=== PATIENT | female | born 1970 | race Caucasian/White ===

== ENCOUNTER → 2016-10-26 | Outpatient (CLI) | payer BC ==
--- NOTE | 2016-10-29 09:14 | RAD ---
EXAM: MAMMO SHARI SCREENING BILATERAL. HISTORY: Screening. COMPARISON: 04/12/2014. FINDINGS: 2-D and 3-D tomosynthesis mammograms were obtained of both breasts in the CC and MLO projections. Computer-aided detection (CAD) was utilized. The breast parenchyma is heterogeneously dense which could reduce sensitivity of mammography (tissue density C). No suspicious microcalcifications or architectural distortion is identified. Within the medial right breast, thought to be at 3:00, there is a small well-circumscribed mass estimated to measure 1 cm, located 6 cm from the nipple. This is not well-seen on previous study, but may be obscured by dense breast tissue. IMPRESSION: Small well-circumscribed mass in the medial right breast, at 3:00, 5 cm from nipple. Recommend ultrasound for further evaluation. BI-RADS CATEGORY: 0 INCOMPLETE: NEEDS ADDITIONAL IMAGING EVALUATION AND/OR PRIOR MAMMOGRAMS FOR COMPARISON. RECOMMENDED FOLLOW-UP: ADD ADDITIONAL IMAGING PQRS compliance statement: Patient information was entered into a reminder system with a target due date for the next mammogram. Mammography is a sensitive method for finding small breast cancers, but it does not detect them all and is not a substitute for careful clinical examination. A negative mammogram does not negate a clinically suspicious finding and should not result in delay in biopsying a clinically suspicious abnormality. "Our facility is accredited by the [employer] Mammography Program."
== END | disposition home or self-care (01) ==
LOC: MAMMO 09:21
PROVIDERS: ATTEND Physician Assistant
DX: Z12.31 Encounter for screening mammogram for malignant neoplasm of breast (principal)
CPT/HCPCS: 77063; G0202; 77067

== ENCOUNTER → 2016-11-07 | Outpatient (CLI) | payer BC ==
--- NOTE | 2016-11-07 16:29 | RAD ---
Right breast ultrasound, 11/07/2016: History: Right breast nodule Recent mammograms from 10/26/2016 demonstrated a small smooth nodule in the upper inner quadrant of the right breast. Careful sonographic evaluation of the right breast was performed from the 1 to the 3 o'clock locations. There is an oval-shaped 1 cm nodule at 1:00 approximately 6 cm from the nipple. The sonographic characteristics are compatible with a simple cyst. This appears to correspond to the mammographic abnormality. No other cystic or solid mass was evident in the upper outer quadrant of the right breast. IMPRESSION: Right breast cyst. Routine yearly mammographic follow-up is suggested. BI-RADS 2-benign findings
== END | disposition home or self-care (01) ==
LOC: US 14:47
PROVIDERS: ATTEND Nurse Practitioner Family
DX: N63 Unspecified lump in breast (principal); N60.01 Solitary cyst of right breast
CPT/HCPCS: 76641

== ENCOUNTER 2017-07-17 23:52 | Emergency (ER) | payer BC ==
[~2017-07-17] VITALS: Ht 160 cm; Wt 94.8 kg
[2017-07-17 23:53] VITALS: BP 132/79
[2017-07-18] MEDS ORDERED: ASPIRIN 81 MG TAB.CHEW PO ONE (00:30)
--- NOTE | 2017-07-18 00:46 | PHYS DOC ---
General Chief Complaint: Palpitations Stated Complaint: PALPITATIONS Time Seen by MD: 23:59 Source: patient Exam Limitations: no limitations Problems: History of Present Illness Initial Comments Patient is a 47-year-old female who comes to the ED complaining of palpitations. Patient states that she has history of palpitations and anxiety, follows with Dr. Madhu De Oliveira who put her on propranolol to control these symptoms. She states that for the past several weeks her symptoms have been worsening "it's like I'm not even on the propranolol anymore." She states that she has exacerbations of a feeling as if her heart is racing with shortness of breath, incidentally she says she's had 3 of those episodes since she's been here however her telemetry has remained normal sinus no tachyarrhythmias, heart rate in 60s. No actual chest pain no arm or neck symptoms no diaphoresis nausea or lightheadedness. No cough fever chills or myalgias patient has never seen a felt puller and has never had a Holter monitor. Her TSH is monitored by her primary care physician due to family history and she states that it has always been normal. She denies any leg swelling or history of coagulopathy. Further questioning reveals that she has had increased stressors in her life as her to college age kids have been home on break "for to long" she does deny suicidal or homicidal ideation. In addition to cardiac workup patient agrees to Ativan intravenously to evaluate efficacy. ED vital signs are normal Timing/Duration: intermittent (2 weeks) Severity: moderate Modifying Factors: improves with other Associated Symptoms: other Allergies: Coded Allergies: Sulfa (Sulfonamide Antibiotics) (Verified Allergy, Unknown, 07/18/17) metronidazole (Verified Allergy, Unknown, 07/18/17) prochlorperazine (Verified Allergy, Unknown, 07/18/17) Past Medical History Medical History: other (anxiety, palpitations) Surgical History: noncontributory Social History Smoker: non-smoker Alcohol: none Drugs: none Review of Systems Constitutional: denies chills, denies diaphoresis, denies fever, denies malaise Respiratory: denies cough, denies wheezing Cardiovascular: see HPI, denies chest pain, denies syncope Gastrointestinal: denies abdominal pain, denies diarrhea, denies nausea, denies vomiting Genitourinary: denies dysuria, denies frequency, denies hematuria Musculoskeletal: denies back pain, denies joint swelling, denies neck pain Psychiatric/Neurological: denies headache, denies numbness, denies paresthesia Hematologic/Lymphatic: denies blood clots, denies easy bleeding, denies easy bruising Physical Exam General Appearance: WD/WN, no apparent distress Ear, Nose, Throat: hearing grossly normal, normal ENT inspection Neck: non-tender, supple Respiratory: normal breath sounds, no respiratory distress Cardiovascular: normal peripheral pulses, regular rate, rhythm Gastrointestinal: non tender, soft Back: no CVA tenderness, no vertebral tenderness Extremities: normal range of motion, non-tender, normal inspection, no pedal edema, no calf tenderness Neurologic/Psychiatric: 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 Interpreted by me. Labs are reassuring I rechecked the patient, she states that the Ativan helped significantly and reducing the number of "palpitations" she felt as well as the severity. Her is at bedside he states that she did experience a few between 0101 and 0104. I reviewed the telemetry and found PVCs corresponding temporarily to the patient's symptoms. I discussed this with the patient, she is an [employer] at the [employer] and is very reassured. She is a healthy individual and she feels anxiety is a likely contributor to her PVCs. I did discuss inpatient treatment and evaluation and offered it to her which she declined. She did request a prescription for Valium to get her by until she was able to get in with her primary care doctor. Signs and symptoms to monitor as well as indications for urgent return to the department were discussed. I discussed [id number]-[id number] prescription medications. I discussed the addictive potential of benzodiazepines and the patient is aware that these are not a long-term solution. I discussed the need for close PCP follow-up to discuss possible Holter monitor and outpatient cardiology workup. Her questions were answered she expressed agreement and understanding of the treatment plan. Departure Time of Disposition: 02:42 Disposition: 01 HOME, SELF-CARE Diagnosis: PVCs, anxiety Condition: IMPROVED Patient Instructions: Anxiety and Panic Attacks, [id number], Palpitations, [id number]-Ghlc Additional Instructions: As discussed your symptoms correlated temporarily to PVCs on telemetry throughout your ED stay. Treatment with Ativan appeared to improve your symptoms and reduce the number and severity of the PVCs symptoms reported. Prescription: Xanax 0.25 mg quantity 6 Follow-up with your doctor tomorrow for recheck, to discuss possible Holter monitor and outpatient cardiology referral. Return to ED with new or changing symptoms. BEATRIZ CONSTANTINO DO Jul 18, 2017 00:46
--- NOTE | 2017-07-18 00:49 | EKG ---
[address] [address] Test Date: 2017-07-18 Test Time: 00:00:08 Pat Name: PEGGY GATES Department: Room: Gender: F Candy Dipper: MARIYA : 1970 Requested By: BEATRIZ CONSTANTINO Order Number: [id number] Reading MD: Jose F Pierre Measurements Intervals [place] Rate: 60 P: 0 TX: 152 QRS: 18 QRSD: 80 T: 20 QT: 386 QTc: 386 Interpretive Statements SINUS RHYTHM QRS(T) CONTOUR ABNORMALITY CONSIDER ANTEROSEPTAL MYOCARDIAL DAMAGE POSSIBLY ABNORMAL ECG Electronically Signed On 07-23-2017 16:20:09 AGILITY INSTRUCTOR by Jose F Pierre
[2017-07-18] MEDS ORDERED: LORazepam 2 MG/ML VIAL IV ONE (01:00)
[2017-07-18 01:25] LABS: BASO % 0 % (0-3); EOS # 0.1 x10^3/uL (0.0-0.7); EOS % 3 % (0-3); HEMATOCRIT 40.1 % (36.0-47.0); HEMOGLOBIN 13.5 g/dL (12.0-15.5); LYMPH # 1.8 x10^3/uL (1.0-4.8); LYMPH % 48 % (24-48); MEAN CORPUSCULAR HEMOGLOBIN 28 pg (25-35); MEAN CORPUSCULAR HGB CONC 34 g/dL (31-37); MEAN CORPUSCULAR VOLUME 83 fL (79-100); MONO # 0.3 x10^3/uL (0.0-1.1); MONO % 7 % (0-9); NEUT # 1.6 x10^3uL (1.8-7.7); NEUT % 42 % (31-73); PLATELET COUNT 165 x10^3/uL (140-400); RED BLOOD COUNT 4.82 x10^6/uL (3.50-5.40); RED CELL DISTRIBUTION WIDTH 13.3 % (11.5-14.5); WHITE BLOOD COUNT 3.8 x10^3/uL (4.0-11.0)
[2017-07-18 01:40] LABS: ALBUMIN/GLOBULIN RATIO 1.1 (1.0-1.7); CALCIUM 9.1 mg/dL (8.5-10.1); CREATININE 0.8 mg/dL (0.6-1.0); GFR 76.2; MAGNESIUM 1.9 mg/dL (1.8-2.4); POTASSIUM 3.8 mmol/L (3.5-5.1); TOTAL BILIRUBIN 0.2 mg/dL (0.2-1.0); TOTAL PROTEIN 7.7 g/dL (6.4-8.2)
[2017-07-18] MEDS ORDERED: ALPR0.254 PO (02:41)
--- NOTE | 2017-07-18 07:23 | RAD ---
Indication: Palpitations tonight. Technique: Upright portable chest radiograph was obtained. Comparison is from July 16, 2011. Findings: The lungs are clear. Calcified granuloma on the right is stable. The cardiopulmonary silhouette is within normal limits. The bony structures are intact. Leads overlie the patient. Impression: No active pulmonary disease.
== END 2017-07-18 03:06 | disposition home or self-care (01) ==
LOC: ER 23:52
DX: I49.3 Ventricular premature depolarization (principal); F41.9 Anxiety disorder, unspecified; Z88.2 Allergy status to sulfonamides; Z88.8 Allergy status to other drugs, medicaments and biological substances
CPT/HCPCS: 36415; 71045; 80053; 82550; 83735; 83880; 84484; 85025; 85379; 93005; 96374; 99285; J2060

== ENCOUNTER → 2018-11-21 | Outpatient (CLI) | payer BC ==
[~2018-11-21] MED LIST: ALPR0.254 PO
--- NOTE | 2018-11-21 13:09 | RAD ---
Two-view right hip 11/21/2017 CLINICAL INDICATION: Right hip pain, no known injury COMPARISON: None. FINDINGS: No acute fracture or traumatic malalignment. Joint spaces are preserved. The visualized soft tissues are unremarkable. IMPRESSION: No acute osseous abnormality. Electronically signed by: Clarence Florentino MD (11/21/2018 1:06 PM) [id number]
== END | disposition home or self-care (01) ==
LOC: DXRAD 12:42
PROVIDERS: ATTEND Family Medicine
DX: M25.551 Pain in right hip (principal)
CPT/HCPCS: 73502

== ENCOUNTER → 2019-01-16 | Outpatient (CLI) | payer BC ==
--- NOTE | 2019-01-16 16:10 | RAD ---
DATE: 01/16/2019 EXAM: MAMMO SHARI SCREENING BILATERAL HISTORY: Routine screening COMPARISON: 04/12/2014, 10/26/2016 mammographic exams This study was interpreted with the benefit of Computerized Aided Detection (CAD). Breast Density: HETERO The breast parenchyma is heterogenously dense, which could reduce sensitivity of mammography. Breast parenchyma level C. FINDINGS: Mass at the right upper inner breast has increased in the interval currently measuring 2.1 cm diameter. No distortion or suspicious calcifications. IMPRESSION: Increased size of a right breast mass which has a corresponding finding on ultrasound examination of 11/07/2016 representing cyst. Considering increase in size however, further evaluation with limited ultrasound is recommended. BI-RADS CATEGORY: 0 INCOMPLETE: NEEDS ADDITIONAL IMAGING EVALUATION AND/OR PRIOR MAMMOGRAMS FOR COMPARISON. RECOMMENDED FOLLOW-UP: ADD ADDITIONAL IMAGING PQRS compliance statement: Patient information was entered into a reminder system with a target due date pending ultrasound results for the next mammogram. Mammography is a sensitive method for finding small breast cancers, but it does not detect them all and is not a substitute for careful clinical examination. A negative mammogram does not negate a clinically suspicious finding and should not result in delay in biopsying a clinically suspicious abnormality. "Our facility is accredited by the [employer] Mammography Program."
== END | disposition home or self-care (01) ==
LOC: MAMMO 08:46
PROVIDERS: ATTEND Family Medicine
DX: Z12.31 Encounter for screening mammogram for malignant neoplasm of breast (principal); N63.12 Unspecified lump in the right breast, upper inner quadrant
CPT/HCPCS: 77063; 77067

== ENCOUNTER → 2019-01-30 | Outpatient (CLI) | payer BC ==
--- NOTE | 2019-01-30 15:22 | RAD ---
INDICATION: 48 year-old female presents for further evaluation of an abnormality seen on prior mammogram TECHNIQUE: Targeted high resolution sonography of the region of concern was performed. COMPARISON: Prior ultrasound 11/07/2016 FINDINGS: 1:00 position, 6 cm from the nipple: An anechoic avascular mass of circumscribed margins and round/oval shape is present. It demonstrates posterior acoustic enhancement and a parallel orientation. It measures 1.8 x 1.3 x 1.7 cm, mildly increased in size on prior examination measured 1 x 0.9 x 0.5 cm. IMPRESSION: Right breast cystic lesion is mildly increased in size. RECOMMENDATION: The patient's focal breast complaint should be further managed clinically. BI-RADS 2: Benign Electronically signed by: Henrry Delgado MD (01/30/2019 3:19 PM) [facility]
== END | disposition home or self-care (01) ==
LOC: US 14:46
PROVIDERS: ATTEND Family Medicine
DX: N63.12 Unspecified lump in the right breast, upper inner quadrant (principal); N64.89 Other specified disorders of breast
CPT/HCPCS: 76641

== ENCOUNTER → 2021-05-02 | Outpatient (CLI) | payer BC ==
--- NOTE | 2021-05-02 10:24 | RAD ---
EXAM: Left knee, 3 views. HISTORY: Pain. Fall. COMPARISON: None. FINDINGS: 3 views of the left knee are obtained. There is no fracture, dislocation or subluxation. Th ere is mild medial compartment spurring. There is no joint effusion. IMPRESSION: Mild medial compartment osteoarthritis of the left knee. No acute osseous finding. Electronically signed by: Kallie Barrera MD (05/02/2021 10:22 AM) [id number]
== END ==
LOC: RAD 10:07
PROVIDERS: ATTEND Family Medicine
DX: M17.12 Unilateral primary osteoarthritis, left knee (principal); M76.892 Other specified enthesopathies of left lower limb, excluding foot; Z68.41 Body mass index [BMI] 40.0-44.9, adult
CPT/HCPCS: 73562

== ENCOUNTER → 2021-05-05 | Outpatient (CLI) | payer BC ==
--- NOTE | 2021-05-08 15:38 | RAD ---
INDICATION : Routine Screening. COMPARISON: Priors including January 2019 TECHNIQUE: Standard mammogram screening views of the bilateral breasts were obtained with 3D tomosynt hesis. CAD was utilized. FINDINGS: The breasts are heterogenous density. No definite suspicious mass. IMPRESSION: BI-RADS Category 1: Negative. The patient was placed into the recall system with a suggested recall date for follow up imaging. Mammography is the most sensitive method for finding small breast cancers, but it does not detect the m all and is not a substitute for careful clinical examination. A negative mammogram does not negate a clinically suspicious finding and should not result in delay in biopsying a clinically suspicious abnormality. Electronically signed by: Salvador Ann MD (05/08/2021 3:36 PM) [id number]
== END ==
LOC: MAMMO 10:52
PROVIDERS: ATTEND Family Medicine
DX: Z12.31 Encounter for screening mammogram for malignant neoplasm of breast (principal)
CPT/HCPCS: 77063; 77067